=== PATIENT | male | born 1985 | race Caucasian/White ===

== ENCOUNTER 2022-03-27 18:31 | Emergency (ER) | payer BC, OTHER ==
[~2022-03-27] VITALS: Ht 190.5 cm; Wt 95.4 kg
[~2022-03-27 18:31] MED LIST: ACHD5005 PO
[2022-03-27 18:41] VITALS: BP 114/75
--- NOTE | 2022-03-27 18:56 | ED Integumentary General ---
General Chief Complaint: Laceration Stated Complaint: LT HAND LAC Source: patient Exam Limitations: no limitations History of Present Illness Date Seen by Provider: Mar 27, 2022 Time Seen by Provider: 18:45 Initial Comments Patient is a 36-year-old male who presents to the emergency department with a chief complaint of laceration to the left ring finger. Patient was working on a car, trying to break apart loose and his hand slipped and he cut the distal tip of his finger. He denies any other complaints of illness or injury. He does not recall his last tetanus shot. He is not allergic to any medications. No other complaints at this time. All other pertinent review of systems reviewed and negative except as stated. Timing/Duration: just prior to arrival Severity: mild Location: hands Possible Cause: other (laceration) Associated Symptoms: denies symptoms Allergies and Home Medications Allergies Coded Allergies: No Known Drug Allergies (Unverified , 03/27/22) Patient Home Medication List Home Medication List Reviewed: Yes Review of Systems Review of Systems Constitutional: see HPI Respiratory: no symptoms reported Cardiovascular: no symptoms reported Gastrointestinal: no symptoms reported Skin: other (laceration) Past Oavzimd-Uiakjd-Flbzao Hx Patient Social History Tobacco Use?: No Smoking Status: Never a Smoker Use of E-Cig and/or Vaping dev: No Use of E-Cig and/or Vaping Kirill: Never a User Substance use?: No Alcohol Use?: No Pt feels they are or have been: No Immunizations Up To Date Influenza Vaccine Up-to-Date: No; Not Current First/Initial COVID19 Vaccinat: unvaccinated Physical Exam Vital Signs Vital Signs - First Documented 03/27/22 18:41 Temp 36.0 Pulse 69 Resp 14 B/P (MAP) 114/75 (88) Pulse Ox 100 O2 Delivery Room Air Capillary Refill : General Appearance: WD/WN, no apparent distress HEENT: PERRL/EOMI Cardiovascular: regular rate, rhythm Respiratory: no respiratory distress, no accessory muscle use Extremities: normal range of motion, normal inspection Neurologic/Psychiatric: normal mood/affect, oriented x 3 Skin: normal color, warm/dry, other (Left ring finger over the tip of the distal phalanx he has a superficial 1 cm laceration with obvious subcutaneous fat visible. Tender to palpation. No obvious foreign body. Tip of the finger sensation is intact. Motor function is intact to the digit.) Procedures/Interventions Wound Location: Upper Extremities Other Wound Location left 4th finger tip Wound Length (cm): 1 Wound's Depth, Shape: superficial, linear Wound Explored: clean Irrigated w/ Saline (ccs): 150 Volume Anesthetic (ccs): 3 Suture: Ethlion Suture Size: 5-0 Number of Sutures: 3 Layer Closure?: 1 Sterile Dressing Applied?: Yes Progress/Results/Core Measures Results/Orders My Orders Orders - ZE GALLEGO MD Dipht,Pertuss(Acell),Tet Adult (Boostrix (03/27/22 19:00) Medications Given in ED Current Medications Medications Dose Ordered Sig/Jone Route Start Time Stop Time Status Last Admin Dose Admin Diphtheria/ Tetanus/Acell Pertussis 0.5 ml ONCE ONCE IM 03/27/22 19:00 03/27/22 19:01 DC 03/27/22 19:27 0.5 ML Vital Signs/I&O 03/27/22 18:41 Temp 36.0 Pulse 69 Resp 14 B/P (MAP) 114/75 (88) Pulse Ox 100 O2 Delivery Room Air Departure Impression Primary Impression: laceration left 4th finger Disposition: HOME, SELF-CARE Condition: Stable Departure-Patient Inst. Decision time for Depature: 18:55 Referrals: [facility] [place] Patient Instructions: Laceration Repair With Stitches (DC) Add. Discharge Instructions: Keep a dressing over the finger for the next 2 to 3 days with a little Neosporin over the stitches. Wash it twice daily and keep it clean. The stitches will need to come out in 10 days. Return to the emergency room if the finger becomes swollen, red, hot or drains pus or you develop a fever. You can have the stitches taken out here in this emergency room, it is part of this visit. [id number] Tylenol or ibuprofen as needed for pain. ZE GALLEGO MD Mar 27, 2022 18:56
[2022-03-27] MEDS ORDERED: TETANUS,DIPTH,PERTUSS P/F (BOOSTRIX) 0.5 ML VIAL IM ONE (19:00)
== END 2022-03-27 19:40 | disposition home or self-care (01) ==
LOC: ER FS 18:36
DX: S61.215A Laceration without foreign body of left ring finger without damage to nail, initial encounter (principal); Z23 Encounter for immunization; Z28.310 Unvaccinated for COVID-19; W26.8XXA Contact with other sharp object(s), not elsewhere classified, initial encounter; Y92.59 Other trade areas as the place of occurrence of the external cause; Y99.0 Civilian activity done for income or pay
CPT/HCPCS: 12001; 90715

== ENCOUNTER 2022-04-06 16:38 | Emergency (ER) | payer BC ==
[2022-04-06 16:48] VITALS: BP 133/71
== END 2022-04-06 16:59 | disposition home or self-care (01) ==
LOC: EDUNIT# 16:38 → ER FS 16:40
DX: Z48.02 Encounter for removal of sutures (principal)